=== PATIENT | male | born 2000 | race Caucasian/White ===

== ENCOUNTER 2023-05-15 07:27 | Emergency (ER) | payer OTHER ==
[~2023-05-15] VITALS: Ht 180.3 cm; Wt 81.0 kg
[2023-05-15] MEDS ORDERED: CLAR40CA PO (07:34)
[2023-05-15 09:20] LABS: BASO # 0.1 10^3/uL (0.0-0.2); BASO % 0.8 % (0.0-1.0); EOS # 0.3 10^3/uL (0.0-0.5); EOS % 4.7 % (0.0-3.0); HEMATOCRIT 44.9 % (42.0-52.0); HEMOGLOBIN 14.8 g/dl (13.5-17.5); LYMPH # 1.4 10^3/uL (1.5-5.0); LYMPH % 22.5 % (24.0-44.0); MEAN CORPUSCULAR HEMOGLOBIN 30.8 pg (27.0-33.0); MEAN CORPUSCULAR VOLUME 93.3 fl (80.0-96.0); MONO # 0.8 10^3/uL (0.0-0.8); MONO % 12.2 % (2.0-8.0); NEUTROPHILS # 3.7 10^3/uL (1.5-8.5); NEUTROPHILS % 59.6 % (36.0-66.0); PLATELET COUNT, AUTOMATED 300 10^3/uL (150-450); RED BLOOD COUNT 4.81 10^6/uL (4.30-6.10); WHITE BLOOD COUNT 6.1 10^3/uL (4.0-10.0)
[2023-05-15 10:10] VITALS: BP 142/88; TEMP 98.5; O2SAT 96
== END 2023-05-15 10:13 | disposition home or self-care (01) ==
LOC: M ED 07:27
DX: R59.0 Localized enlarged lymph nodes (principal); Z79.899 Other long term (current) drug therapy